=== PATIENT | female | born 1985 | race Caucasian/White ===

== ENCOUNTER 2016-07-29 06:54 | Inpatient (IN) | payer MEDICAID ==
[2016-07-29] VITALS (15 sets, daily range): BP systolic 114–150; RESP 16–23; TEMP 97.3–98.5; Ht 166.4 cm; Wt 103.7 kg
[~2016-07-29] VITALS: Ht 166.4 cm; Wt 103.7 kg
[2016-07-29] MEDS ORDERED: CLINDAMYCIN 900 MG in DEXTROSE 5% 50 ML IV ONE (07:25)
[2016-07-29] MEDS ORDERED: GLYCOPYRROLATE 0.2 MG/ML VIAL IV ONE ×2 (07:48→08:05)
[2016-07-29] MEDS ORDERED: DEXAMETHASONE 4 MG/ML VIAL IV ONE ×2 (07:48→08:05)
[2016-07-29] MEDS ORDERED: ONDANSETRON 4 MG VIAL IV PUSH ONE (07:48)
[2016-07-29] MEDS ORDERED: LIDOCAINE 2% SYR 5 ML IV ONE (07:48)
[2016-07-29] MEDS ORDERED: PRECEDEX 200 MCG/2 ML VL IV ONE (07:48)
[2016-07-29] MEDS ORDERED: DILAUDID 1 MG/ML AMP IV ONE (07:48)
[2016-07-29] MEDS ORDERED: NEOSTIGMINE 10 MG/10 ML VIAL IV ONE (07:48)
[2016-07-29] MEDS ORDERED: ROCURONIUM 50 MG VIAL IV ONE (07:48)
[2016-07-29] MEDS ORDERED: FENTANYL 100 MCG/2 ML AMP IV ONE (07:48)
[2016-07-29] MEDS ORDERED: PROPOFOL 20 ML VIAL IV ONE (07:48)
[2016-07-29] MEDS ORDERED: ACETAMINOPHEN 1,000 MG/100 ML IV ONE (07:48)
[2016-07-29] MEDS ORDERED: LACT RINGERS 1,000 ML IV SCH (08:05)
[2016-07-29] MEDS ORDERED: SCOPOLAMINE PATCH TRANSDERM ONE (08:05)
[2016-07-29] MEDS ORDERED: MIDAZOLAM 2 MG/2 ML INJ IV ONE (08:05)
[2016-07-29] MEDS ORDERED: LIDOCAINE 1% BUFFERED 1 ML SYR INTRADERM PRN (08:05)
[2016-07-29] MEDS ORDERED: ONDANSETRON 4 MG VIAL IV ONE (08:05)
[2016-07-29] MEDS ORDERED: PHARMACY TO DOSE GENTAMICIN IV ONE (09:05)
[2016-07-29] MEDS ORDERED: GENTAMICIN 380 MG in SODIUM CHLORIDE 0.9% 100 ML IV ONE (09:20)
[2016-07-29] MEDS ORDERED: ONDANSETRON 4 MG VIAL IV PRN ×2 (09:35→11:15)
[2016-07-29] MEDS ORDERED: OXYCODONE 5 MG TAB PO PRN (09:35)
[2016-07-29] MEDS ORDERED: MEPERIDINE 25 MG/ML IV PRN (09:35)
[2016-07-29] MEDS ORDERED: DILAUDID 1 MG/ML AMP IV PRN (09:35)
[2016-07-29] MEDS ORDERED: BISACODYL 10 MG SUPP RECTAL PRN (11:15)
[2016-07-29] MEDS ORDERED: DILAUDID 0.2 MG/ML PCA IV SCH (11:15)
[2016-07-29] MEDS ORDERED: PROMETHAZINE 25 MG/ML VIAL IM/IV PRN (11:15)
[2016-07-29] MEDS ORDERED: ZOLPIDEM 5 MG TAB PO PRN (11:15)
[2016-07-29] MEDS ORDERED: KETOROLAC 30 MG/ML VIAL ONE (13:17)
[2016-07-29] MEDS: KETOROLAC 30 MG/ML VIAL IV PRN ×2 (13:25→20:13)
[2016-07-29] MEDS: CLINDAMYCIN 900 MG in DEXTROSE 5% 50 ML IV SCH (16:28)
[2016-07-29] MEDS: LACT RINGERS 1,000 ML IV SCH (17:30)
[2016-07-29] MEDS: OXYCODONE/APAP 5/325 TAB PO PRN ×2 (17:35→21:54)
[2016-07-29] MEDS ORDERED: DOCUSATE SOD 100 MG CAP PO ONE (21:00)
[2016-07-30] MEDS: CLINDAMYCIN 900 MG in DEXTROSE 5% 50 ML IV SCH ×2 (00:04→08:48)
[2016-07-30] MEDS: LACT RINGERS 1,000 ML IV SCH ×2 (00:46→07:11)
[2016-07-30] MEDS: OXYCODONE/APAP 5/325 TAB PO PRN ×6 (01:40→21:57)
[2016-07-30 04:06] VITALS: BP_SYST 115; RESP 16; TEMP 97.9
[2016-07-30] MEDS: KETOROLAC 30 MG/ML VIAL IV PRN (04:54)
[2016-07-30] MEDS ORDERED: Ibuprofen 800 MG TAB PO PRN (07:20)
[2016-07-30] MEDS ORDERED: DOCUSATE SOD 100 MG CAP PO PRN (07:20)
[2016-07-30 07:31] VITALS: BP_SYST 104; RESP 20; TEMP 98
[2016-07-30 11:11] VITALS: BP_SYST 106; RESP 20; TEMP 97.3
[2016-07-30 15:55] VITALS: BP_SYST 124; RESP 20; TEMP 97.9
[2016-07-30 21:03] VITALS: BP_SYST 103; RESP 20; TEMP 98.5
[2016-07-30] MEDS ORDERED: MISSING DOSE XX ONE (22:10)
[2016-07-30 23:54] VITALS: BP_SYST 128; RESP 20; TEMP 98
[2016-07-31] MEDS: OXYCODONE/APAP 5/325 TAB PO PRN ×2 (02:33→06:42)
[2016-07-31 03:59] VITALS: BP_SYST 120; RESP 20; TEMP 98.1
[2016-07-31 08:08] VITALS: BP_SYST 127; RESP 18; TEMP 98
[2016-07-31 11:31] VITALS: BP_SYST 115; RESP 18; TEMP 97.6
[2016-07-31 12:10] VITALS: BP_SYST 115; RESP 18; TEMP 97.6
[2016-08-01] MEDS ORDERED: REMOVE SCOPALAMINE PATCH XX ONE (08:05)
== END 2016-07-31 12:30 | disposition home or self-care (01) | DRG 743 ==
LOC: ENRESERVDT → ENRESERVTM → OSEC 06:54 → ENPENDDIS 11:12 → SDS 11:12 → 3S 13:11
PROVIDERS: ADMIT Obstetrics & Gynecology; ATTEND Obstetrics & Gynecology
PROC: 0UT20ZZ Resection of Bilateral Ovaries, Open Approach (ICD-10-PCS; 2016-07-29)
PROC: 0UT70ZZ Resection of Bilateral Fallopian Tubes, Open Approach (ICD-10-PCS; 2016-07-29)
PROC: 0UT90ZZ Resection of Uterus, Open Approach (ICD-10-PCS; principal; 2016-07-29 09:02)
PROC: 0UTC0ZZ Resection of Cervix, Open Approach (ICD-10-PCS; 2016-07-29 09:02)
DX: N94.6 Dysmenorrhea, unspecified (principal); F32.9 Major depressive disorder, single episode, unspecified; N80.0 Endometriosis of uterus; F41.9 Anxiety disorder, unspecified; F17.210 Nicotine dependence, cigarettes, uncomplicated
CPT/HCPCS: 81025; 85025; 88307; 94799